=== PATIENT | female | born 2005 | race Caucasian/White ===

== ENCOUNTER 2024-07-20 08:58 | Emergency (ER) | payer BC | END 2024-07-20 10:08 | disposition home or self-care (01) | LOC: MADERS 08:58 | DX: S93.401A Sprain of unspecified ligament of right ankle, initial encounter (principal); Z87.891 Personal history of nicotine dependence; W01.0XXA Fall on same level from slipping, tripping and stumbling without subsequent striking against object, initial encounter | CPT/HCPCS: 99283 ==